=== PATIENT | male | born 1995 | race Two or more races ===

== ENCOUNTER 2018-04-22 20:08 | Emergency (ER) | payer OTHER ==
[~2018-04-22] VITALS: Ht 157.5 cm; Wt 54.4 kg
[2018-04-22 20:42] VITALS: BP 121/78
[2018-04-22] MEDS ORDERED: levETIRAcetam 1,000mg/NS100ml 100 ML IVPB ONE (20:45)
--- NOTE | 2018-04-22 20:59 | Emergency Room Report ---
History of Present Illness General Chief Complaint: Seizure Source: Patient Present Illness [facility] Mr. Emanuel is a 23-year-old male with history of seizures since age 17. He has not taken antiepileptics for several months. He normally takes alprazolam for anxiety which controls his seizures. Today he had generalized tonic-clonic witnessed seizure. Denies any trauma. He's been in good health. Denies any headache or pain as a result of the seizure. Last use of alprazolam, Xanax 3 months ago. Allergies: Coded Allergies: No Known Allergies (Unverified , 04/22/18) Patient History Past Medical History: see triage record Social History: Reports: alcohol use, drug use; Denies: smoking Social History Narrative occupation: [employer] Reviewed Nursing Documentation: PMH: Agreed; PSxH: Agreed Nursing Documentation-PMH Past Medical History: No Stated History Review of Systems Constitutional: Denies: fever, malaise Neurological: Denies: headache, numbness All Other Systems: negative except mentioned in HPI Physical Exam Vital Signs Date Time Temp Pulse Resp B/P (MAP) Pulse Ox O2 Delivery O2 Flow Rate FiO2 04/22/18 20:01 97.9 80 18 140/80 99 Room Air Sp02 EP Interpretation: reviewed, normal General Appearance: no apparent distress, alert, GCS 15, non-toxic Head: normocephalic, atraumatic Eyes: bilateral eye normal inspection, bilateral eye PERRL ENT: hearing grossly normal, normal pharynx, no angioedema, normal voice Neck: full range of motion, supple/symm/no masses Respiratory: chest non-tender, lungs clear, normal breath sounds, speaking full sentences Cardiovascular #1: regular rate, rhythm, no edema Cardiovascular #2: 2+ carotid (R), 2+ carotid (L), 2+ radial (R), 2+ radial (L) , 2+ dorsalis pedis (R), 2+ dorsalis pedis (L) Gastrointestinal: normal bowel sounds, non tender, soft, non-distended, no guarding, no rebound Rectal: deferred Genitourinary: normal inspection, no CVA tenderness Musculoskeletal: back normal, gait/station normal, normal range of motion, non- tender, calf tenderness Neurologic: alert, oriented x3, responsive, motor strength/tone normal, sensory intact, speech normal Psychiatric: judgement/insight normal, memory normal, mood/affect normal, no suicidal/homicidal ideation Reflexes: 3+ bicep (R), 3+ bicep (L), 3+ tricep (R), 3+ tricep (L), 3+ knee (R) , 3+ knee (L) Skin: normal color, no rash, warm/dry, well hydrated Medical Decision Making Diagnostic Impression: Primary Impression: Seizure disorder ER Course seizure since age 17, prescribed keppra no evidence of trauma, infection or metabolic derangement Labs Test 04/22/18 20:35 White Blood Count 5.9 K/UL (4.8-10.8) Red Blood Count 5.48 M/UL (4.70-6.10) Hemoglobin 15.8 G/DL (14.2-18.0) Hematocrit 46.1 % (42.0-52.0) Mean Corpuscular Volume 84 FL (80-99) Mean Corpuscular Hemoglobin 28.9 PG (27.0-31.0) Mean Corpuscular Hemoglobin Concent 34.3 G/DL (32.0-36.0) Red Cell Distribution Width 12.2 % (11.6-14.8) Platelet Count 214 K/UL (150-450) Mean Platelet Volume 6.8 FL (6.5-10.1) Neutrophils (%) (Auto) 70.0 % (45.0-75.0) Lymphocytes (%) (Auto) 21.9 % (20.0-45.0) Monocytes (%) (Auto) 6.6 % (1.0-10.0) Eosinophils (%) (Auto) 0.4 % (0.0-3.0) Basophils (%) (Auto) 1.1 % (0.0-2.0) Sodium Level 137 MMOL/L (136-145) Potassium Level 3.5 MMOL/L (3.5-5.1) Chloride Level 100 MMOL/L (98-107) Carbon Dioxide Level 26 MMOL/L (21-32) Anion Gap 11 mmol/L (5-15) Blood Urea Nitrogen 9 mg/dL (7-18) Creatinine 1.1 MG/DL (0.55-1.30) Estimat Glomerular Filtration Rate > 60 mL/min (>60) Glucose Level 117 MG/DL (74-106) Calcium Level 8.9 MG/DL (8.5-10.1) Lab Results Impression cbc bmp WNL Last Vital Signs Date Time Temp Pulse Resp B/P (MAP) Pulse Ox O2 Delivery O2 Flow Rate FiO2 04/22/18 20:42 97.9 72 18 121/78 99 Room Air Disposition: HOME, SELF-CARE Condition: Stable Marianne Hobbs MD Apr 22, 2018 20:59
[2018-04-22 21:02] LABS: BASOPHILS % (AUTO) 1.1 % (0.0-2.0); EOSINOPHILS % (AUTO) 0.4 % (0.0-3.0); HEMATOCRIT 46.1 % (42.0-52.0); HEMOGLOBIN 15.8 G/DL (14.2-18.0); LYMPHOCYTES % (AUTO) 21.9 % (20.0-45.0); MEAN CORPUSCULAR VOLUME 84 FL (80-99); MONOCYTES % (AUTO) 6.6 % (1.0-10.0); PLATELET COUNT 214 K/UL (150-450); RED BLOOD COUNT 5.48 M/UL (4.70-6.10); RED CELL DISTRIBUTION WIDTH 12.2 % (11.6-14.8); WHITE BLOOD COUNT 5.9 K/UL (4.8-10.8)
[2018-04-22 21:13] LABS: ANION GAP 11 mmol/L (5-15); BLOOD UREA NITROGEN 9 mg/dL (7-18); CALCIUM 8.9 MG/DL (8.5-10.1); CARBON DIOXIDE 26 MMOL/L (21-32); CHLORIDE 100 MMOL/L (98-107); CREATININE 1.1 MG/DL (0.55-1.30); POTASSIUM 3.5 MMOL/L (3.5-5.1); SODIUM 137 MMOL/L (136-145)
[2018-04-22] MEDS ORDERED: KEPPRA500 M4 ORAL (21:40)
[2018-04-22 21:45] VITALS: BP 121/78
== END 2018-04-22 21:45 | disposition home or self-care (01) ==
LOC: EDBD 20:08 → EMR 20:20
DX: G40.909 Epilepsy, unspecified, not intractable, without status epilepticus (principal); F41.9 Anxiety disorder, unspecified; Z79.899 Other long term (current) drug therapy
CPT/HCPCS: 36415; 80048; 85025; 96374; 99284; J1953